=== PATIENT | male | born 1945 | race Caucasian/White ===

== ENCOUNTER → 2017-12-16 | Outpatient (CLI) | payer OTHER ==
[~2017-12-16] MED LIST: ASPIR 8181 MG PO; AUGMENTIN 875-1 EACH PO; CIPROFLOXACIN500 M1 PO; CYCLOBENZAPRINE5 MG PO; DEXAMETHASONE 44 M1 PO; DEXAMETHASONE4 MG; ESTRADIOL 1 MG T1 M1; FAMCYCLOVIR 50500 M1 PO; GLIMEPIRIDE1 MG PO; GLUCOPHAGE XR500 MG PO; HUMALOG100 UNIT/1 SUBQ; HYDROCHLOROTH12.5 M1; HYDROCODON-ACE1 EAC7 PO; HYDROCODONE-AP1 EAC6 PO; KEPPRA 500 MG500 M1 PO; LEVOTHYROXIN; LISINOPRIL-HCT1 EAC1; LISINOPRIL20 MG PO; NAPROSYN500 MG PO; NOHOMEMEDICATIONS; SEROQUEL 25 MG25 M1 PO; SYNTHROID25 MC1 PO; TEMODAR140 MG; XANAX 0.25 MG0.25 MG PO; ZOCOR20 MG
[2017-12-16 07:57] LABS: CREATININE 1.1 mg/dL (0.6-1.3); POTASSIUM 3.6 mmol/L (3.5-5.1)
== END ==
LOC: M.LAB 10-06 10:00 → M.CT 10-06 11:30 → M.LAB 08:00 → M.CT 09:00
PROVIDERS: Radiology Radiation Oncology
DX: M47.812 Spondylosis without myelopathy or radiculopathy, cervical region (principal); C7A.1 Malignant poorly differentiated neuroendocrine tumors; C76.0 Malignant neoplasm of head, face and neck; M47.815 Spondylosis without myelopathy or radiculopathy, thoracolumbar region; M48.02 Spinal stenosis, cervical region; I25.10 Atherosclerotic heart disease of native coronary artery without angina pectoris; I10 Essential (primary) hypertension; Z82.49 Family history of ischemic heart disease and other diseases of the circulatory system

== ENCOUNTER → 2017-12-22 | Outpatient (CLI) | payer OTHER | LOC: M.CT 07:35 | DX: D3A.8 Other benign neuroendocrine tumors (principal); N28.89 Other specified disorders of kidney and ureter; J98.4 Other disorders of lung; N28.1 Cyst of kidney, acquired; Z90.49 Acquired absence of other specified parts of digestive tract ==

== ENCOUNTER → 2017-12-25 | Outpatient (CLI) | payer OTHER ==
--- NOTE | 2018-01-03 12:07 | ONC ---
[facility] [address] [place] [address] RADIATION ONCOLOGY NOTE Name: NIKKIE GOINS Room: [facility]#: [id number] Admission: 12/25/17 Attend Phys: Pedro Nuñez MD Discharge: Date of : 47 Report #: [id number] THIS REPORT FOR: //name// CC: Oscar Blanco MD DATE OF SERVICE: 12/25/2017 RADIATION ONCOLOGY PROCEDURE NOTE [facility] phone is [phone]. REFERRING PHYSICIANS: 1. Oscar Velasquez M.D. 2. Honorio Hensley M.D. 3. Ronald Gonsales M.D. 4. Christiano Reyes M.D. 5. Tariq Blanco M.D. PRIMARY SITE AND HISTOPATHOLOGY: The patient was treated for a glioblastoma multiforme. He received radiation treatments with temozolomide chemotherapy after resection of the glioblastoma multiforme. Radiation treatments were completed on 04/23/2010. 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 The surgery was performed on 09/25/2009. PROCEDURE: Nasopharyngolaryngoscopy. FINDINGS: On nasopharyngolaryngoscopy via the left nostril, after administration of a small amount of 2% viscous lidocaine orally and 2% viscous lidocaine to the left nostril via a cotton swab, there were no visible lesions in the nasopharynx. There were no visible lesions in the posterior oropharynx. The true vocal cords were normally mobile bilaterally, without any visible lesions. There were no visible lesions in the base of tongue area. There was no evidence of head and neck cancer. Thank you for allowing me to participate in the care of this patient. <ELECTRONICALLY SIGNED> By: Pedro Nuñez MD 01/03/18 1207 1255 0043Dhali Nuñez MD /nt
--- NOTE | 2018-01-03 12:19 | ONC ---
[address] [address] RADIATION ONCOLOGY NOTE Name: NIKKIE GOINS Room: [facility]#: [id number] Admission: 12/25/17 Attend Phys: Pedro Nuñez MD Discharge: Date of : 47 Report #: [id number] THIS REPORT FOR: //name// CC: Dr. Oscar Blanco MD DATE OF SERVICE: 12/25/2017 REFERRING PHYSICIANS: Oscar Velasquez MD; Honorio Hensley MD; Ronald Gonsales MD; Christiano Reyes MD and Tariq Blanco MD. [facility] phone is [phone]. PRIMARY SITE AND HISTOPATHOLOGY: The patient was treated for a glioblastoma multiforme and received radiation treatments with temozolomide chemotherapy after resection of the glioblastoma multiforme. Radiation treatments were completed on 04/15/2010. He was also treated for a stage DENISA base of tongue cancer and received chemoradiotherapy. Radiation treatments were completed on 03/26/2009 for the patient's lung cancer. 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 INTERVAL NOTE: The patient feels like he is eating well. He feels fine. He has a good energy level. MEDICATIONS: Metformin, lisinopril, aspirin and 25 mcg of levothyroxine per day. SOCIAL HISTORY: The patient is . Cigarettes: he quit smoking in 1981, he smoked for about 18 years prior to that time. REVIEW OF SYSTEMS: GASTROINTESTINAL: He is eating a regular diet. RESPIRATORY: His breathing was baseline, and he was not short of breath. NEUROLOGIC: He can ambulate without assistance. PHYSICAL EXAMINATION: VITAL SIGNS: The patient weighed 168.2 pounds on 12/25/2017, 176 pounds on 10/22/2016. On 12/25/2017, blood pressure was 177/91, pulse 74, respirations 18. LYMPH NODES: He had no palpable cervical or supraclavicular lymphadenopathy. HEAD, EYES, EARS, NOSE AND THROAT: Mouth [place] [address] RADIATION ONCOLOGY NOTE Name: NIKKIE GOINS Room: [facility]#: [id number] Admission: 12/25/17 Attend Phys: Pedro Nuñez MD Discharge: Date of : 47 Report #: [id number] suspicious palpable lesions. On nasopharyngolaryngoscopy via the left nostril after applying a small amount of viscous lidocaine orally and also 2% viscous lidocaine to left nostril, using a cotton swab, there were no visible lesions in the nasopharynx. There were no visible lesions in the base of tongue. The true vocal cords were normally mobile bilaterally. HEART: Had a regular rate and rhythm without murmur. LUNGS: were clear to auscultation. ABDOMEN: Not tender. Spleen was not palpable. Liver was at the costal margin. EXTREMITIES: Had 5/5 strength in his extremities. LABORATORY DATA: From 12/16/2017, sodium 141, potassium 3.6, BUN 15, creatinine 1.1. TSH was 2.025 on his present dose of 25 mcg of levothyroxine. RADIOLOGIC DATA: He had an abdominal CT on 12/22/2017, which showed no evidence of adrenal mass or retroperitoneal lymphadenopathy. The report was amended and the final amended report revealed an unremarkable abdominal CT. He also had a neck CT on 12/16/2017, which did not reveal any obvious disease. He had a chest CT on 12/16/2017, which showed no pathologic adenopathy or acute infiltrate. ASSESSMENT AND PLAN: 1. History of glioblastoma multiforme. There is no evidence of glioblastoma multiforme at this time. The patient is scheduled to see his neurosurgeon, Dr. Hensley, on 02/10/2018. He has a head MRI scheduled at that time. The patient had a requisition written for a basic metabolic panel in April 2018. He was asked to schedule a follow up appointment to see me afterwards. 2. History of head and neck cancer- There is no evidence of head and neck cancer at this time. The patient was given a requisition for a basic metabolic panel in April 2018. He was asked to schedule a follow up appointment to see me afterwards. 3. History of neuroendocrine tumor- There is no evidence of neuroendocrine tumor at this time. He was given a requisition for a basic metabolic panel in April 2018. He was asked to schedule a follow up appointment to see me afterwards. 4. Hypothyroidism- The patient was given a refill for 25 mcg of levothyroxine. TSH was ordered in April 2018. He was asked to schedule a followup appointment to see me afterwards. 5. Dental care- The patient indicated that he uses fluoride for his teeth and [place] [address] RADIATION ONCOLOGY NOTE Name: NIKKIE GOINS Room: [facility]#: [id number] Admission: 12/25/17 Attend Phys: Pedro Nuñez MD Discharge: Date of : 47 Report #: [id number] 6. Initially stated right renal finding- the radiology report was amended and the right kidney ended up having no suspicious findings. Thank you for allowing me to participate in the care of this patient. <ELECTRONICALLY SIGNED> By: Pedro Nuñez MD 01/03/18 1219 1311 0545Pedro Nuñez MD /sanjana
== END ==
LOC: M.RTH 10-09 09:30
DX: Z08 Encounter for follow-up examination after completed treatment for malignant neoplasm (principal); E03.9 Hypothyroidism, unspecified; Z86.012 Personal history of benign carcinoid tumor; Z85.89 Personal history of malignant neoplasm of other organs and systems; Z85.841 Personal history of malignant neoplasm of brain

== ENCOUNTER 2018-01-04 16:30 | Emergency (ER) | payer OTHER ==
[~2018-01-04] VITALS: Ht 167.6 cm; Wt 74.8 kg
[~2018-01-04 16:30] MED LIST changes: -AUGMENTIN 875-1 EACH PO; -DEXAMETHASONE 44 M1 PO; -GLIMEPIRIDE1 MG PO; -HUMALOG100 UNIT/1 SUBQ; -KEPPRA 500 MG500 M1 PO; -SEROQUEL 25 MG25 M1 PO; -SYNTHROID25 MC1 PO; -XANAX 0.25 MG0.25 MG PO
[2018-01-04 18:38] VITALS: BP 163/88
== END 2018-01-04 18:51 | disposition home or self-care (01) ==
LOC: M.ERS 16:30
DX: S09.90XA Unspecified injury of head, initial encounter (principal); I10 Essential (primary) hypertension; Z86.718 Personal history of other venous thrombosis and embolism; W22.8XXA Striking against or struck by other objects, initial encounter; Y93.89 Activity, other specified; Y92.89 Other specified places as the place of occurrence of the external cause; Y99.8 Other external cause status

== ENCOUNTER 2018-01-07 11:24 | Emergency (ER) | payer OTHER ==
[~2018-01-07] VITALS: Ht 167.6 cm; Wt 74.8 kg
[2018-01-07 11:43] LABS: ABSOLUTE BASOPHILS 0.1 thou/uL (0.0-0.2); ABSOLUTE EOSINOPHILS 0.1 thou/uL (0.0-0.7); ABSOLUTE LYMPHOCYTES 2.4 thou/uL (0.8-5.3); ABSOLUTE MONOCYTES 0.7 thou/uL (0.0-1.2); ABSOLUTE NEUTROPHILS 5.7 thou/uL (1.6-8.1); BASOPHILS 1.2 %; EOSINOPHILS 0.8 %; HEMATOCRIT 41.3 % (42.0-52.0); HEMOGLOBIN 13.8 gm/dL (14.0-18.0); LYMPHOCYTES 26.8 %; MCH 32.5 pg (26.0-34.0); MCHC 33.5 g/dL (28.0-37.0); MCV 97.2 fL (80.0-100.0); MONOCYTES 7.3 %; MPV 8.4 fl. (7.2-11.1); NUCLEATED RBCS 0 /100WBC; PLATELET COUNT* 249 thou/uL (150-400); POLYS 63.9 %; RBC 4.25 mil/uL (4.50-6.00); RDW-CV 12.9 % (10.5-14.5)
[2018-01-07 11:55] LABS: PROTIME 10.7 Seconds (9.20-11.50)
[2018-01-07 11:57] LABS: ANION GAP 8 mmol/L (7-16); BUN 19 mg/dL (7-18); CALCIUM 8.8 mg/dL (8.5-10.1); CHLORIDE 103 mmol/L (98-107); CO2 28 mmol/L (21-32); CREATININE 1.1 mg/dL (0.6-1.3); GLUCOSE 111 mg/dL (70-99); POTASSIUM 3.3 mmol/L (3.5-5.1); SODIUM 139 mmol/L (136-145)
[2018-01-07 12:15] LABS: ALBUMIN 3.9 g/dL (3.4-5.0); ALKALINE PHOSPHATASE 61 U/L (46-116); CK-MB MASS 1.5 ng/mL (<0.5-3.6); NT-PRO BRAIN NAT PEPTIDE 143 pg/mL (<300); SGOT 19 U/L (15-37); SGPT 20 U/L (30-65); TOTAL BILIRUBIN 0.6 mg/dL (<0.1-1.0); TOTAL PROTEIN 7.2 g/dL (6.4-8.2); TROPONIN-I LEVEL <0.06 ng/mL (<0.06)
[2018-01-07 12:34] LABS: URINE BILIRUBIN NEGATIVE (Negative); URINE BLOOD NEGATIVE (Negative); URINE CLARITY CLEAR; URINE COLOR YELLOW; URINE GLUCOSE-RANDOM NEGATIVE (Negative); URINE KETONES NEGATIVE (Negative); URINE LEUKOCYTES-REFLEX NEGATIVE (Negative); URINE NITRITE-REFLEX NEGATIVE (Negative); URINE PROTEIN NEGATIVE (Negative); URINE UROBILINOGEN 0.2 E.U./dl (0.2-1.0)
[2018-01-07 15:25] VITALS: BP 188/87
--- NOTE | 2018-01-07 15:47 | EKG ---
[place] [address] ELECTROCARDIOGRAM REPORT Name: NIKKIE GOINS Room: [facility]#: [id number] Admission: 01/07/18 Attend Phys: Discharge: 01/07/18 Date of : 47 Report #: [id number] THIS REPORT FOR: //name// [facility] ED Test Date: 2018-01-07 Test Time: 12:06:08 Pat Name: NIKKIE GOINS Department: Room: Gender: M Technical Operator: Davy TURNER : 1945 Requested By: Jorge Morfin Order Number: [id number] MD: Sarmad Ross Measurements Intervals [place] Rate: 72 P: 60 RI: 149 QRS: 4 QRSD: 91 T: 20 QT: 408 QTc: 447 Interpretive Statements Normal sinus rhythm Abnormal R-wave progression, early transition Baseline wander in lead(s) V5 Compared to ECG 06/01/2016 08:29:18 No significant changes Electronically Signed On 01-07-2018 15:47:45 CDT by Sarmad Ross [email or web address] <ELECTRONICALLY SIGNED> By: Sarmad Ross MD, [facility] 01/07/18 1547 1206 1206 Sarmad Ross MD, [facility] /EPI
== END 2018-01-07 15:27 | disposition short-term general hospital (02) ==
LOC: M.ERS 11:24
PROVIDERS: Family Medicine
DX: R41.82 Altered mental status, unspecified (principal); I10 Essential (primary) hypertension; G93.89 Other specified disorders of brain; Z86.718 Personal history of other venous thrombosis and embolism

== ENCOUNTER → 2018-01-13 | Outpatient (CLI) | payer OTHER ==
[~2018-01-13] MED LIST changes: +AUGMENTIN 875-1 EACH PO; +DEXAMETHASONE 44 M1 PO; +GLIMEPIRIDE1 MG PO; +HUMALOG100 UNIT/1 SUBQ; +KEPPRA 500 MG500 M1 PO; +SEROQUEL 25 MG25 M1 PO; +SYNTHROID25 MC1 PO; +XANAX 0.25 MG0.25 MG PO
--- NOTE | 2018-01-25 02:26 | CON ---
[address] [address] CONSULTATION Name: WILLIE GOINS Room: [facility]#: [id number] Admission: 01/13/18 Attend Phys: Pedro Nuñez MD Discharge: Date of : 47 Report #: [id number] THIS REPORT FOR: //name// CC: Oscar Reyes. DATE OF SERVICE: 01/13/2018 REFERRING PHYSICIANS: Include Dr. Willie Hensley, Dr. Ronald Gonsales, Dr. Stahl, Dr. Christiano Reyes and Oscar Velasquez MD [facility] phone is [phone]. PRIMARY SITE AND HISTOPATHOLOGY: The patient now has findings consistent with a new brain lesion. HISTORY OF PRESENT ILLNESS: The patient is a 72-year-old gentleman who had been previously treated for a glioblastoma multiforme where he underwent resection and then radiation treatments along with temozolomide chemotherapy. He finished radiation treatments in 2009 and that was at the [facility]. His resection was at [facility]. That lesion that was present in 2009 was noted on a head MRI on 01/28/2010, which revealed a right parietal lesion that measured 3 cm.x 3.3 cm. x 3.4 cm. After resection and radiation therapy and temozolomide, he appeared to be disease free until the scan that he had performed on 01/07/2018. He also has a history of stage DENISA base of tongue cancer and he received radiation therapy and chemotherapy for that. The radiation therapy was completed on 03/26/2009. 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 Most recently, he had indicated that he fell and that he was taken to the Emergency Room and ultimately went on to have a head MRI at [facility] on 01/07/2018, which revealed a 5.3 cm. x 4.1 cm. x 3.3 cm mass involving the right frontal operculum and right hay radiata. The patient was started on 4 mg. dexamethasone every 12 hours. He is going to be reducing to 4 mg every day. He denied having any headaches. He denied having any nausea and he felt like his gait was stable and that his strength was reasonably well. He is scheduled to see his medical oncologist, Dr. Gonsales, later today. He is also scheduled to see the medical oncologist, Dr. Stahl, and his neurosurgeon, Dr. Hensley, in 01/2018. He presents to discuss further management of this brain lesion. PAST MEDICAL HISTORY AND PAST SURGICAL HISTORY: [place] [address] CONSULTATION Name: WILLIE GOINS Room: [facility]#: [id number] Admission: 01/13/18 Attend Phys: Pedro Nuñez MD Discharge: Date of : 47 Report #: [id number] present illness of his previous malignancies. He also has a history of hypertension. He has a history of colon polyps and previous colonoscopy. MEDICATIONS: He is taking Keppra, dexamethasone will be reduced from 4 mg twice a day to 4 mg once a day. He also is taking metformin, lisinopril and aspirin. ALLERGIES: No known drug allergies. FAMILY HISTORY: Mother and father had hypertension. SOCIAL HISTORY: The patient is . 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 Ethanol: he does not drink alcohol. Cigarettes: he quit smoking in 1981, he smoked for about 18 years prior to that time. REVIEW OF SYSTEMS: GENERAL: He had no fevers or chills. SKIN: He bruises a little bit easily while on the dexamethasone. LYMPH NODES: He had no enlarged or painful glands in the neck. ENDOCRINE: He denied having hot or cold intolerance. HEMATOLOGY/IMMUNOLOGY: Denied having any anemia or recent bleeding. MUSCULOSKELETAL: He has arthritis in the knees. HEAD AND NECK: He did have a little bit of head trauma after the fall, but MRI did not really show any hematoma, just this brain tumor. RESPIRATORY: He denied having any shortness of breath. CARDIOVASCULAR: He denied any palpitations. ABDOMEN: He denied having any nausea or vomiting. NEUROLOGIC: He says he has focal weakness mostly in the left upper extremity and some coordination issues. They have improved while on the steroids. PHYSICAL EXAMINATION: GENERAL: The patient was alert,oriented and in no acute distress. EYES: Pupils were equal, round and reactive to light and accomodation. HEAD, EARS, NOSE, THROAT: Mouth had no visible suspicious lesion. HEART: had a regular rate and rhythm. LUNGS: were clear to auscultation. ABDOMEN: soft and not tender. EXTRENITES: no clubbing, cyanosis, or edema NUROLOGIC: 4 out of 4 strength in his extremites LABORATORY DATA: From 01/08/2018, hemoglobin 13.7, platelets 242,000. Sodium 137, potassium 3.9, BUN 17, creatinine 1.02. Head MRI from 01/07/2018 showed a heterogeneous mass-like enhancement involving the right frontal operculum and right hay radiata, measured 5.3 x 4.1 x 3.3 cm and appears to be new compared to his MRI of the head on 07/01/2017. The patient [place] [address] CONSULTATION Name: WILLIE GOINS Room: [facility]#: [id number] Admission: 01/13/18 Attend Phys: Pedro Nuñez MD Discharge: Date of : 47 Report #: [id number] 12/22/2017, which was essentially unremarkable, just some surgical changes with resection of the distal body and tail of pancreas. He had a neck CT also on 12/16/2017, which was essentially unremarkable and a chest CT from 12/16/2017 was essentially unremarkable. ASSESSMENT AND PLAN: 1. Brain lesion- Most likely this is a malignant glioma since it appears to be a solitary lesion. Since it has been about 8 years since his treatment for his glioblastoma multiforme, a biopsy would be probably helpful. I will try to email his neurosurgeon, Dr. Hensley, to see if a biopsy and/or resection is feasible. He has had previous radiation therapy, so re-radiation may be somewhat limited, but if it is recurrent glioblastoma multiforme then treatment with temozolomide may be considered or Optune therapy, and he is seeing the medical oncologist. I will go ahead and try to also order a PET scan and have the patient follow up with me afterwards. 2. Hypothyroidism- The patient has been taking 25 mcg of levothyroxine and his TSH has been within normal limits with him taking that amount of levothyroxine, and his TSH was 2.025 on 12/16/2017. 3. History of neuroendocrine tumor. A PET/CT will be ordered and he will be asked to follow up with me afterwards. 4. History of head and neck cancer. PET/CT will be ordered and he will follow up with me afterwards. 5. Dental care. The patient uses the fluoride provided by his dentist for dental care. Thank you for allowing me to participate in the care of this patient. <ELECTRONICALLY SIGNED> By: Pedro Nuñez MD 01/25/18 0226 1244 1319Daesmer Nuñez MD /nt
== END ==
LOC: M.RTH 05:10
DX: I10 Essential (primary) hypertension (principal); G93.9 Disorder of brain, unspecified; C80.1 Malignant (primary) neoplasm, unspecified; Z87.891 Personal history of nicotine dependence

== ENCOUNTER → 2018-01-27 | Outpatient (CLI) | payer OTHER ==
[~2018-01-27] MED LIST changes: -AUGMENTIN 875-1 EACH PO; +GLUCOPHAGE XR500 MG; -GLUCOPHAGE XR500 MG PO; -SEROQUEL 25 MG25 M1 PO
--- NOTE | 2018-02-07 11:20 | ONC ---
[address] [address] RADIATION ONCOLOGY NOTE Name: WILLIE GOINS Room: [facility]#: [id number] Admission: 01/27/18 Attend Phys: Pedro Nuñez MD Discharge: Date of : 47 Report #: [id number] THIS REPORT FOR: //name// CC: Oscar Reyes MD DATE OF SERVICE: 01/27/2018 REFERRING PHYSICIANS: Oscar Velasquez MD; Dr. Willie Hensley; Ronald Gonsales MD; Sarmad Stahl MD; Christiano Reyes MD [facility] phone is [phone]. PRIMARY SITE AND HISTOPATHOLOGY: The patient now has findings consistent with a recurrent brain tumor. In the past, he was treated for a glioblastoma multiforme. He received radiation treatments with temozolomide chemotherapy after resection of the glioblastoma multiforme. Radiation treatments were completed on 04/15/2010. He was also treated for a stage DENISA base of tongue cancer and received chemotherapy and radiation therapy. Radiation treatments were completed on 03/26/2009. He also had resection of a oez-np-wwrjxcthxj differentiated neuroendocrine cancer of the abdomen. The surgery was performed on 09/25/2009. INTERVAL NOTE: The patient had a PET scan to help see if there are any other areas of concern in the body and there were no signs of any other signs of extracranial disease. The patient otherwise is doing well, taking 4 mg dexamethasone per day. He does have some issues with insomnia, but he denied having any headaches or seizures or nausea. He actually has a pretty good appetite. MEDICATIONS: Include Keppra. 4 mg. dexamethasone once a day. He is also taking metformin (and he says his sugars run somewhere between 100 and 200 when he checks them),lisinopril and aspirin. SOCIAL HISTORY: The patient is . 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 Ethanol: He does not drink alcohol containing beverages. Cigarettes: He quit smoking in 1981. He smoked for about 18 years prior to that time. REVIEW OF SYSTEMS: NEUROLOGIC: The patient is able to ambulate without assistance, though he does sometimes use a walker, [place] [address] RADIATION ONCOLOGY NOTE Name: WILLIE GOINS Room: [facility]#: [id number] Admission: 01/27/18 Attend Phys: Pedro Nuñez MD Discharge: Date of : 47 Report #: [id number] RESPIRATORY: He was not short of breath. PHYSICAL EXAMINATION: VITAL SIGNS: The patient weighed 167.2 pounds on 01/27/2018. He was 165.4 pounds on 01/13/2018. On 01/27/2018, blood pressure was 146/82, pulse 75, oxygen saturation 98%, respirations 18. LYMPH NODES: No cervical or supraclavicular lymphadenopathy. HEART: Had a regular rate and rhythm without murmur. LUNGS: were clear to auscultation. NEUROLOGY: Had 4/5 strength in his extremities. LABORATORY DATA: From 01/08/2018, hemoglobin 13.7, platelets 84385, white blood cell count 6.9. Sodium 137, potassium 3.9, BUN 17, creatinine 1.02. RADIOLOGIC DATA: Head MRI from 01/07/2018 revealed mass-like enhancement involving the right frontal operculum and right hay radiata. PET scan from 01/20/2018: There was no evidence of extracranial primary malignancy. ASSESSMENT/PLAN: 1. Most likely recurrent brain tumor- The patient is scheduled to see the medical oncologist, Dr. Stahl, on 02/01/2018 and his neurosurgeon, Dr. Hensley, on 02/10/2018. So we will wait to see Dr. Hensley's evaluation of his scan to see if he will biopsy/resect what appears to be recurrent tumor and lab work was ordered in about a month and the patient was asked to schedule a follow up appointment to see me afterwards. He was given a refill for his dexamethasone and Keppra. 2. Hypothyroidism- The patient has been taking 25 mcg of levothyroxine and his TSH has been within normal limits with him taking that amount of levothyroxine. 3. History of neuroendocrine tumor- There is no evidence of neuroendocrine tumor at this time. 4. History of head and neck cancer- There is no evidence of head and neck cancer at this time. 5. Dental care- The patient uses fluoride provided by his dentist for dental care. Thank you for allowing me to participate in the care of this patient. <ELECTRONICALLY SIGNED> By: Pedro Nuñez MD 02/07/18 1120 1149 0046Pedro Nuñez MD /nt
== END ==
LOC: M.RTH 03:53
DX: E03.9 Hypothyroidism, unspecified (principal); Z85.89 Personal history of malignant neoplasm of other organs and systems; Z85.858 Personal history of malignant neoplasm of other endocrine glands

== ENCOUNTER 2018-02-13 08:34 | Emergency (ER) | payer OTHER ==
[~2018-02-13] VITALS: Ht 167.6 cm; Wt 80.4 kg
[~2018-02-13 08:34] MED LIST changes: -DEXAMETHASONE 44 M1 PO; -GLIMEPIRIDE1 MG PO; -HUMALOG100 UNIT/1 SUBQ; -KEPPRA 500 MG500 M1 PO; -SYNTHROID25 MC1 PO; -XANAX 0.25 MG0.25 MG PO
[2018-02-13 08:59] LABS: ABSOLUTE BASOPHILS 0.1 thou/uL (0.0-0.2); ABSOLUTE EOSINOPHILS 0.1 thou/uL (0.0-0.7); ABSOLUTE LYMPHOCYTES 1.3 thou/uL (0.8-5.3); ABSOLUTE MONOCYTES 0.5 thou/uL (0.0-1.2); ABSOLUTE NEUTROPHILS 9.7 thou/uL (1.6-8.1); EOSINOPHILS 0.5 %; HEMATOCRIT 38.2 % (42.0-52.0); HEMOGLOBIN 12.7 gm/dL (14.0-18.0); LYMPHOCYTES 11.3 %; MCH 32.7 pg (26.0-34.0); MCHC 33.3 g/dL (28.0-37.0); MCV 98.4 fL (80.0-100.0); MONOCYTES 4.2 %; MPV 8.6 fl. (7.2-11.1); NUCLEATED RBCS 0 /100WBC; PLATELET COUNT* 176 thou/uL (150-400); RBC 3.88 mil/uL (4.50-6.00); RDW-CV 13.3 % (10.5-14.5); WBC 11.7 thou/uL (4.0-11.0)
[2018-02-13] MEDS ORDERED: DEXAMETHASONE 44 M1 PO (09:00)
[2018-02-13] MEDS ORDERED: KEPPRA 500 MG500 M1 PO (09:01)
[2018-02-13 09:08] LABS: ANION GAP 2 mmol/L (7-16); BUN 28 mg/dL (7-18); CALCIUM 9.2 mg/dL (8.5-10.1); CHLORIDE 102 mmol/L (98-107); CO2 30 mmol/L (21-32); CREATININE 1.2 mg/dL (0.6-1.3); GLUCOSE 198 mg/dL (70-99); POTASSIUM 4.2 mmol/L (3.5-5.1); SODIUM 134 mmol/L (136-145)
[2018-02-13 09:19] LABS: ALBUMIN 2.9 g/dL (3.4-5.0); ALKALINE PHOSPHATASE 44 U/L (46-116); NT-PRO BRAIN NAT PEPTIDE 186 pg/mL (<300); SGOT 15 U/L (15-37); SGPT 27 U/L (30-65); TOTAL BILIRUBIN 0.4 mg/dL (<0.1-1.0); TOTAL PROTEIN 5.7 g/dL (6.4-8.2); TROPONIN-I LEVEL <0.06 ng/mL (<0.06)
[2018-02-13 09:35] LABS: BE 0.7 mmol/L (-2 to +3); HCO3 24.7 mmol/L (22.0-26.0); PCO2 37.5 mmHg (35.0-45.0); PO2 86.9 mmHg (75.0-100.0); pH 7.436 (7.340-7.450)
[2018-02-13 10:33] LABS: APTT 22.4 Seconds (25.0-31.3); PROTIME 10.7 Seconds (9.20-11.50)
[2018-02-13 11:48] LABS: URINE BILIRUBIN NEGATIVE (Negative); URINE BLOOD NEGATIVE (Negative); URINE CLARITY CLEAR; URINE COLOR YELLOW; URINE GLUCOSE-RANDOM TRACE (Negative); URINE KETONES NEGATIVE (Negative); URINE LEUKOCYTES-REFLEX NEGATIVE (Negative); URINE NITRITE-REFLEX NEGATIVE (Negative); URINE PROTEIN NEGATIVE (Negative); URINE UROBILINOGEN 0.2 E.U./dl (0.2-1.0)
[2018-02-13 13:44] VITALS: BP 144/84
--- NOTE | 2018-02-14 10:59 | EKG ---
[place] [address] ELECTROCARDIOGRAM REPORT Name: NIKKIE GOINS Room: [facility]#: [id number] Admission: 02/13/18 Attend Phys: Discharge: 02/13/18 Date of : 47 Report #: [id number] THIS REPORT FOR: //name// [facility] ED Test Date: 2018-02-13 Test Time: 09:03:56 Pat Name: NIKKIE IRAHETADILEEPOswaldo Department: Room: Gender: Painting Instructor: Davy TURNER : 1945 Requested By: Cheryl Shipley Order Number: [id number] MD: Ladarius Weber Measurements Intervals [place] Rate: 71 P: 13 CO: 139 QRS: 10 QRSD: 86 T: 18 QT: 391 QTc: 425 Interpretive Statements Sinus rhythm Compared to ECG 01/07/2018 12:06:08 No significant changes Electronically Signed On 02-14-2018 10:59:19 CDT by Ladarius Weber [email or web address] <ELECTRONICALLY SIGNED> By: Ladarius Weber MD, [facility] 02/14/18 1059 D: 10/902 2 Ladarius Weber MD, FACC /EPI
== END 2018-02-13 13:44 | disposition home or self-care (01) ==
LOC: M.ERS 08:34
PROVIDERS: Personal Emergency Response Attendant
DX: D49.6 Neoplasm of unspecified behavior of brain (principal); I10 Essential (primary) hypertension

== ENCOUNTER 2018-03-03 12:49 | Inpatient (IN) | payer OTHER ==
[~2018-03-03] VITALS: Ht 172.7 cm; Wt 90.7 kg
[~2018-03-03 12:49] MED LIST changes: +DEXAMETHASONE 44 M1 PO; -GLUCOPHAGE XR500 MG; +GLUCOPHAGE XR500 MG PO; +KEPPRA 500 MG500 M1 PO
[2018-03-03 12:52] VITALS: BP 151/78
[2018-03-03 13:08] LABS: HEMATOCRIT 39.8 % (42.0-52.0); HEMOGLOBIN 13.3 gm/dL (14.0-18.0); MCH 32.8 pg (26.0-34.0); MCHC 33.5 g/dL (28.0-37.0); MPV 9.4 fl. (7.2-11.1); NUCLEATED RBCS 0 /100WBC; PLATELET COUNT* 224 thou/uL (150-400); RBC 4.06 mil/uL (4.50-6.00); RDW-CV 13.7 % (10.5-14.5); WBC 10.6 thou/uL (4.0-11.0)
[2018-03-03 13:18] LABS: ANION GAP 5 mmol/L (7-16); BUN 31 mg/dL (7-18); CHLORIDE 101 mmol/L (98-107); CO2 31 mmol/L (21-32); CREATININE 1.2 mg/dL (0.6-1.3); GLUCOSE 234 mg/dL (70-99); POTASSIUM 4.2 mmol/L (3.5-5.1); SODIUM 137 mmol/L (136-145)
[2018-03-03 13:19] LABS: APTT 21.2 Seconds (25.0-31.3); PROTIME 10.3 Seconds (9.20-11.50)
[2018-03-03 13:29] LABS: ALBUMIN 2.9 g/dL (3.4-5.0); ALKALINE PHOSPHATASE 52 U/L (46-116); NT-PRO BRAIN NAT PEPTIDE 167 pg/mL (<300); SGOT 13 U/L (15-37); SGPT 26 U/L (30-65); TOTAL BILIRUBIN 0.3 mg/dL (<0.1-1.0); TOTAL PROTEIN 5.9 g/dL (6.4-8.2); TROPONIN-I LEVEL <0.06 ng/mL (<0.06)
[2018-03-03 13:45] LABS: ABSOLUTE LYMPHOCYTES 0.4 thou/uL (0.8-5.3); ABSOLUTE MONOCYTES 0.3 thou/uL (0.0-1.2); ABSOLUTE NEUTROPHILS 9.9 thou/uL (1.6-8.1)
[2018-03-03 13:46] LABS: PLATELET ESTIMATE ADEQUATE; TOXIC GRANULATION 2+
[2018-03-03 13:47] LABS: MACROCYTES 1+; TARGET CELLS 1+
[2018-03-03 15:11] LABS: URINE BILIRUBIN NEGATIVE (Negative); URINE BLOOD NEGATIVE (Negative); URINE CLARITY CLEAR; URINE COLOR YELLOW; URINE GLUCOSE-RANDOM 1+ (Negative); URINE KETONES NEGATIVE (Negative); URINE LEUKOCYTES-REFLEX NEGATIVE (Negative); URINE NITRITE-REFLEX NEGATIVE (Negative); URINE PROTEIN NEGATIVE (Negative); URINE UROBILINOGEN 0.2 E.U./dl (0.2-1.0)
[2018-03-03 16:20] VITALS: BP 149/90
--- NOTE | 2018-03-03 16:41 | EKG ---
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 Seating: : 1945 Requested By: Kosta Patel Order Number: [id number] MD: Ladarius Weber Measurements Intervals [place] Rate: 67 P: 18 MN: 138 QRS: 8 QRSD: 83 T: 45 QT: 407 QTc: 430 Interpretive Statements Sinus rhythm Abnormal R-wave progression, early transition Compared to ECG 02/13/2018 09:03:56 No significant changes Electronically Signed On 03-03-2018 16:41:50 WELT CUTTER by Ladarius Weber [email or web address] <ELECTRONICALLY SIGNED> By: Ladarius Weber MD, [facility] 03/03/18 1641 1254 1254 Ladarius Weber MD, [facility] /EPI
[2018-03-03 16:58] VITALS: BP 169/85
--- NOTE | 2018-03-03 17:24 | NUR ---
ADMITTED TO ROOM 311, NO DISTRESS NOTED, MOD AMT DEFICIT TO LUE/LLE, UP W/ SBA OF ONE W/ USE OF WALKER, GAIT UNSTEADY. CONT OF BOWEL/BLADDER, FAMILY AT BEDSIDE. SEE ASSESSMENT FOR DETAILS, NO WOUNDS NOTED, MED LIST RECONCILED, SR ON MONITOR, BP ELEVATED, CALL LIGHT IN REACH, CONT POC.
[2018-03-03] MEDS ORDERED: SYNTHROID25 MC1 PO (17:33)
[2018-03-03] MEDS ORDERED: XANAX 0.25 MG0.25 MG PO (17:35)
[2018-03-03] MEDS ORDERED: GLIMEPIRIDE1 MG PO (17:36)
[2018-03-03 20:00] VITALS: BP 173/89
[2018-03-04 00:10] VITALS: BP 173/88
[2018-03-04 04:00] VITALS: BP 139/81
--- NOTE | 2018-03-04 06:07 | NUR ---
PATIENT SLEPT PART OF THE NIGHT. IV REMAINS SALINE LOCKED. PATIENT HAD NO COMPLAINTS OF PAIN. PATIENT IS UP WITH 1 AND WALKER TO THE BATHROOM. WILL CONTINUE TO MONITOR.
[2018-03-04 08:00] VITALS: BP 176/84
[2018-03-04 12:00] VITALS: BP 156/77
--- NOTE | 2018-03-04 13:15 | NUR ---
ATTEMPTED TO SPEAK TO THE PATIENT TO DISCUSS HOME SITUATION, DISCHARGE PLANNING, AND TO INFORM OF THE ROLE OF CM. PATIENT OUT OF THE ROOM AT THIS TIME HAVING IMAGING DONE. PATIENT'S SON IN THE ROOM AND ANSWERING ASSESSMENT QUESTIONS. PATIENT'S SON INFORMS THAT THE PATIENT RESIDES AT HOME WITH SPOUSE AND SHE DOES ALL DRIVING, COOKING, CLEANING, AND ASSST WITH CARES NEEDED. PATIENT'S SON IS ALSO A GOOD SOURCE OF SUPPORT AND IS SUPPORTIVE AND INVOLVED IN THE PATIENT'S POC. PATIENT USES A WALKER FOR MOBILITY, BUT ALSO OWNS A CANE. PATIENT HAD BEEN ON-SERVICE WITH [facility] PRIOR TO THIS ADMISSION. PATIENT HAS NO HX OF SNF. CM INFORMED OF CONSULT FOR ACUTE REHAB HER IN THE HOSPITAL. SPOKE TO SECURITY GUARD DISPATCHER TO DISCUSS AND SHE WILL REVIEW AND RETURN CALL TO DISCUSS. CM WILL REMAIN AVIALABLE TO ASSIST AND FOLLOW NEEDED.
[2018-03-04 16:00] VITALS: BP 142/65
--- NOTE | 2018-03-04 17:27 | NUR ---
RECEIVED CONSULT FOR POSSIBLE REHAB ADMISSION. CONSULT HAS BEEN ACKNOWLDEGED BY ANESTHESIOLOGIST AND DR. LAMBERT. PATIENT WITH HX OF BRAIN GLIOBLASTOMA. ADMITTED RECENTLY WITH RECURRENT BRAIN GLIOMA AND RIGHT ICH. WAS UNDERGOING ANTIBODY THERAPY TX WITHOUT RADIATION WITH LAST TX DAY BEFORE THIS ADMISSION. ADMITTED THIS TIME WITH INCREASING WEAKNESS, MULTIPLE FALLS AND INABILITY TO AMBULATE. NEUROLOGY WORK UP WITH DX OF POSSIBLE SEIZURE AND SMALL STROKE. PATIENT EVALUATED AND SEEN BY PT/OT/ST HAS DEFINITE REHAB NEEDS. SPOKE WITH LOU SIMON INFORMED PATIENT WOULD BE GOOD REHAB CANDIDATE AND QUALIFIES FOR ACUTE REHAB DEPENDING ON CONTINUED CANCER TX, WHICH WOULD HAVE TO BE PUT ON HOLD UNTIL AFTER REHAB STAY. WILL FOLLOW ALONG WITH PATIENT TO SEE HOW HE PROGRESSES AND WHAT CANCER TX WILL BE. THANK YOU FOR THIS REFERRAL.
--- NOTE | 2018-03-04 18:18 | NUR ---
COMPREHENSIVE NEURO ASSESSMENT COMPLETE, NO DISTRESS, ELIDIA MEDS/ CARES WELL, CARE PLAN REVIEWED, DENIES QUESTIONS, CALL LIGHT IN REACH, CONT POC.
[2018-03-04 20:30] VITALS: BP 127/82
[2018-03-05 00:05] VITALS: BP 133/64
[2018-03-05 04:00] VITALS: BP 174/92
--- NOTE | 2018-03-05 05:25 | NUR ---
PATIENT SLEPT MOST OF THE NIGHT. PATIENT IS UP WITH ASSIST WITH WALKER AND GAITBELT TO BATHROOM. IV REMAINS SALINE LOCKED. PATIENT IS POSSIBLY GOING TO REHAB ON DISCHARGE. WILL CONTINUE TO MONITOR.
[2018-03-05 08:10] VITALS: BP 182/87
--- NOTE | 2018-03-05 15:30 | NUR ---
INEZ spoke with Dr Gonzales about pt dc plans and Dr Gonzales completed orders for pt to be able to dc to inpt rehab today. SW spoke with pt and pt about dc plan and they are in agreement with pt to dc to inpt rehab and receive therapies until pt next infusion/cancer tx on 03/16. Pt/pt goal for pt to be able to dc 03/15 prior to an 03/15 appt at 3:30. Pt explained that they had another appt on 03/12 but she is willing to reschedule that appt. INEZ discussed referral/orders with rehabilitation tech, Conchis, she presented information to insurance and acceptance to rehab pending insurance authorization, if/when received, then pt will be able to admit to inpt rehab. Pt also mentioned that she will cancel the wc that was going to be delivered to the hospital when they thought they might go home today. Pt also mentioned that pt will need a rolling walker with a platform attachment and INEZ explained that can be arranged from dc from inpt rehab.
[2018-03-05 16:00] VITALS: BP 150/84
--- NOTE | 2018-03-05 17:23 | NUR ---
PATIENT HAS BEEN ALERT AND ORIENTED TODAY VERY PLEASANT. UP WITH THERAPY, WALKER AND GAIT BELT. TOLERATED WELL. VITAL SIGNS STABLE ON ROOM AIR, FAMILY AT BEDSIDE MOST OF THE DAY. WAITING ON INSURANCE AUTHORIZATION. CALL LIGHT IS IN REACH, WILL CONITNUE TO MONITOR.
[2018-03-05 20:00] VITALS: BP 171/93
[2018-03-06] VITALS (8 sets, daily range): BP systolic 125–170; BP diastolic 65–93
--- NOTE | 2018-03-06 18:52 | NUR ---
ELIDIA THERAPY WELL, NO DISTRESS, COMPLIANT W/ MEDS AND CARES, DISCUSSED PLAN OF CARE, NO QUESTIONS AT THIS TIME, CONT POC.
[2018-03-07 04:07] LABS: HEMATOCRIT 37.6 % (42.0-52.0); HEMOGLOBIN 12.5 gm/dL (14.0-18.0); MCH 32.6 pg (26.0-34.0); MCHC 33.1 g/dL (28.0-37.0); MCV 98.5 fL (80.0-100.0); MPV 10.1 fl. (7.2-11.1); RBC 3.82 mil/uL (4.50-6.00); RDW-CV 13.6 % (10.5-14.5); WBC 13.7 thou/uL (4.0-11.0)
[2018-03-07 04:33] LABS: ALBUMIN 2.7 g/dL (3.4-5.0); CALCIUM 8.8 mg/dL (8.5-10.1); MAGNESIUM 1.9 mg/dL (1.8-2.4); POTASSIUM 4.3 mmol/L (3.5-5.1); TOTAL BILIRUBIN 0.4 mg/dL (<0.1-1.0); TOTAL PROTEIN 5.2 g/dL (6.4-8.2)
--- NOTE | 2018-03-07 04:50 | NUR ---
PATIENT REMAINS STABLE THIS SHIFT. NO INJURIES SUSTAINED FROM FALL AND NO ORDERS RECEIVED. PATIENT'S BLOOD SUGAR CORRECTED APPROPRIATELY. PATIENT DENIES PAIN AND DISCOMFORT. PATIENT NOW RESTING IN BED WITH ALARM IN PLACE. HOURLY ROUNDING OBSERVED. CALL LIGHT WITHIN REACH
[2018-03-07 08:00] VITALS: BP 144/80
[2018-03-07 15:46] VITALS: BP 146/84
[2018-03-07 19:45] VITALS: BP 151/79
--- NOTE | 2018-03-08 06:33 | NUR ---
PT SLEPT MOST OF SHIFT. ASSESSMENT DOCUMENTED. MEDS GIVEN PER E-JUN. NO REPORTS OF PAIN THIS SHIFT. PATIENT REFUSED INSULIN AND XANEX THIS SHIFT. PT STATED THAT HE IS AFRAID HE WILL BECOME DEPENDANT ON INSULIN, PT EDUCATED. PT ALSO STATED THAT HE WANTED TO TRY TO GET OFF OF ALL OF HIS MEDICATIONS. WILL CONTINUE WITH PLAN OF CARE.
[2018-03-08 08:00] VITALS: BP 138/74
--- NOTE | 2018-03-08 09:31 | NUR ---
Insurance has initially denied pt acceptance to inpt rehab. INEZ has asked Dr Gonzales if he would be willing to do peer to peer with pt insurance and INEZ is awaiting response. INEZ to continue to follow to assist with safe dc planning.
--- NOTE | 2018-03-08 14:41 | NUR ---
CONTINUEING TO FOLLOW PATIENT ALONG WITH DR. LAMBERT. INSURANCE DENIED ACUTE REHAB, PEER TO PEER WAS INITIATED. RECEIVED CALL FROM INSURANCE TODAY AND PEER TO PEER COMPLETED AND DENIAL WAS OVERTURNED. PATIENT NOW APPROVED TO COME TO ACUTE REHAB. NOTIFIED MALCOLM SIMON OF APPROVAL AND THAT PATIENT CAN ADMIT TONIGHT.
--- NOTE | 2018-03-08 15:33 | NUR ---
INEZ discussed needed peer to peer with Dr Gonzales who was willing to discuss with Dr from pt insurance. Dr Gonzales was able to overturn the decision and pt insurance provided approval for pt to admit to inpt rehab. Conchis Roldan, student liaison officer provided final approval to INEZ; pt to dc to inpt rehab today.
[2018-03-08 16:45] VITALS: BP 149/83
[2018-03-08] MEDS ORDERED: HUMALOG100 UNIT/1 SUBQ (18:23)
[2018-03-08 18:24] VITALS: BP 149/83
--- NOTE | 2018-03-20 15:44 | EEG ---
[address] [address] EEG STUDY REPORT Name: NIKKIE GOINS Room: [address] IN [facility]#: [id number] Admission: 03/03/18 Attend Phys: Salena Izaguirre Discharge: 03/08/18 Date of : 47 Report #: [id number] THIS REPORT FOR: //name// CC: Oscar Gonzales DATE OF SERVICE: 03/04/2018 This patient is having episode of weakness on the left side. EEG is being done to evaluate the patient for any epileptiform activity arising from the right cerebral hemisphere. The background activity on this patient's EEG on the right side is about 9 Hz and 30 microvolt. It is a markedly asymmetrical activity. It is slow on the right side. It also demonstrates some sharper activity. Most prominent sharper activity is in the right parietal area. Part of it may be breach rhythm because the patient had surgery there by history, but it does fluctuate raising the possibility of seizures from there. Photic stimulation is unremarkable. IMPRESSION: This is a markedly abnormal electroencephalogram because it is very asymmetrical. It is markedly slow on the right side as compared to the left side. It does show some sharper activity on the right cerebral hemisphere. Part of it may be breach rhythm, but it does fluctuate raising some possibility of seizure for which clinical correlation is recommended. <ELECTRONICALLY SIGNED> By: Sean Hernandez MD 03/20/18 [id number] carlos Hernandez MD /nt
--- NOTE | 2018-03-20 15:44 | CON ---
[address] [address] CONSULTATION Name: NIKKIE GOINS Room: [address] IN M.R.#: [id number] Admission: 03/03/18 Attend Phys: Salena Izaguirre Discharge: 03/08/18 Date of : 47 Report #: [id number] THIS REPORT FOR: //name// CC: Oscar Gonzales DATE OF SERVICE: 03/04/2018 HISTORY OF PRESENT ILLNESS: This is a 72-year-old male patient who was seen by me for a very complicated history. There are multiple records in the computer, which I reviewed. He has a detailed note from radiation oncologist summarizing his history of tumor over a long period of time. He was admitted with generalized weakness, but to me he tells me that his weakness is mostly on the left side. It looks like the weakness fluctuates and intermittently it becomes worst that leads to fall. There may be some component of neglect. In between when he has these symptoms, he also has a tendency to ____. The history is also that when this actually happened, it looks like he had an episode where he has shakiness and probably seizure. He has been on Keppra since then. From all indications, it would appear that this patient's tumor has come back and he is going to follow up with Dr. Hensley to evaluate that tumor further and discuss his options. His MRI also indicated the possibility of a small stroke that time. I reviewed the record from Emergency Room physician when he was here the last time and looks like they had called Dr. Hensley and discussed the patient with him on 02/13/2018. REVIEW OF SYSTEMS: Positive for multiple tumors in this patient. A 14-point review of system was carried out and it is pretty complicated as described above. The relevant portion is summarized above. PAST MEDICAL HISTORY: Positive for glioblastoma, which appeared to have responded to the treatment at least initially. FAMILY HISTORY: Negative for any early age stroke. SOCIAL HISTORY: Does not drink alcohol on a regular basis. PHYSICAL EXAMINATION: Indicate that he is alert, responsive. He is oriented. He can tell me what month it is and what hospital he is in. Cranial nerve examination 2-12, the best I can tell, looks mostly unremarkable. He did have a facial droop at one time. He may have slight facial droop now. His strength may be trace, lower on the left side as compared to the right side. He has no cerebellar sign on either side, does not appear he has papilledema. He is moderately well-built individual who does not have [place] [address] CONSULTATION Name: NIKKIE GOINS Room: [address] IN M.R.#: [id number] Admission: 03/03/18 Attend Phys: Salena Izaguirre Discharge: 03/08/18 Date of : 47 Report #: [id number] eyes, ears and face. His blood pressure is 176/84, respirations 12, pulse is 76, temperature is 98.2. His GFR is 60. His blood sugar is 234. His cardiac and respiratory examination is unremarkable. He does not appear to have much respiratory difficulty. I reviewed the patient's prior records as well as imaging study. IMPRESSION: 1. Recurrence of his tumor, which need to be confirmed by biopsy or resection. For that, he has an appointment with his neurosurgeon, Dr. Hensley, at [facility]. 2. Small hemorrhage in the right frontal lobe, which appeared to have resolved. 3. Possibility of a diffusion abnormality, which is small on the last MRI and that may represent a new stroke. 4. Possibility of some of these spell being focal seizures, need to be considered, especially he had a grand mal seizure in the past. 5. History of a grand mal seizure without any reoccurrence. RECOMMENDATIONS: I discussed with the patient and the family, the limitation of our hospital. I told them that there is no neurosurgeon or neuro-oncologist comes here and he needs to go to there. I will also talk to the admitting doctor. At the moment, I will go ahead and get another MRI done to compare to see if he is having some small strokes because initial MRI has shown slight diffusion-weighted abnormality. I will also go ahead and do an MRA at the same time. He has got contrast so many times. Even if his BUN and creatinine is normal, I will do the MRI without contrast only because basically we are looking for is to see if he had another stroke since last time and whether that diffusion-weighted images were even stroke. I am going to get an EEG to see if we can pharmacy picking technician any focal seizure activity, which will indicate that we have to increase the dose of Keppra. I may do that anyway because a lot of time EEG is not sensitive enough to pharmacy picking technician the seizure. I will suggest considering a rehab consult on this patient. The question need to be addressed whether this place will be appropriate for him for the rehabilitation or he needs to go to some other place like [facility]. Family is concerned about keeping his appointment for his infusion, it is on ; they wanted to know if the patient can go to the infusion when he is admitted to the hospital or not. I could not answer their question. Medically, there should not be any contraindication, but the rules need to be followed. For that, I will consult bilingual case manager for that. All of it was discussed with the family in detail and I will discuss this patient with Dr. Gonzales. Dr. Enciso will follow up this patient with you [place] [address] CONSULTATION Name: NIKKIE GOINS Room: [address] IN [facility].#: [id number] Admission: 03/03/18 Attend Phys: Salena Izaguirre Discharge: 03/08/18 Date of : 47 Report #: [id number] Thank you very much for this referral. <ELECTRONICALLY SIGNED> By: Sean Hernandez MD 03/20/18 1544 0938 [id number] Hernandez MD /nt
== END 2018-03-08 19:30 | DRG 54 ==
LOC: M.ERS 12:49 → M.3W 15:09 → M.TBA-ER 15:09 → M.3W 15:09
PROVIDERS: Emergency Medicine Emergency Medical Services; Family Medicine; ADMIT Internal Medicine
DX: C71.1 Malignant neoplasm of frontal lobe (principal); I63.9 Cerebral infarction, unspecified; E44.0 Moderate protein-calorie malnutrition; R56.9 Unspecified convulsions; E11.9 Type 2 diabetes mellitus without complications; I10 Essential (primary) hypertension; Z85.810 Personal history of malignant neoplasm of tongue; Z86.718 Personal history of other venous thrombosis and embolism; Z87.891 Personal history of nicotine dependence; Z68.30 Body mass index [BMI] 30.0-30.9, adult; Z79.899 Other long term (current) drug therapy

== ENCOUNTER 2018-03-08 15:28 | Inpatient (IN) | payer OTHER ==
[~2018-03-08] VITALS: Ht 172.7 cm; Wt 77.1 kg
--- NOTE | ~2018-03-08 | H ---
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 He presented on 03/03/2018 with complaint of worsening weakness, inability to ambulate. 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 He was recently seen at . The tumor had returned. He was given antibiotic therapy and radiation on 02/13/2018. He presented to the ER at [facility] with complaint of facial droop, slurred speech. MRI did show at that time the right frontal lobe glioblastoma and right frontal lobe ICH and possible infarcts were present. No significant changes since the preadmission screening. Previous level of function was minimum assistance to no assistance with activities of daily living. Current level of function is minimum assistance to maximum assistance of 1-2 depending on therapy, activity and time of day. He is utilizing a front-wheeled walker at 75 feet. He has moderate to severe impairment of comprehension, expression, social interaction, problem solving, memory. Estimated length of stay is 12-16 days with discharge disposition to the home setting where he does have supportive family and appropriate housing. ALLERGIES: He has no known drug allergies. SOCIAL HISTORY: Former smoker greater than 5 years ago, daily drinks 1-2 per day. No illicit drug use. REVIEW OF SYSTEMS: A 14-point review of systems is done today, is negative except as mentioned in the HPI, specifically no fever, chest pain, shortness of breath, abdominal pain or distention. PHYSICAL EXAMINATION: GENERAL: Alert, oriented, in no apparent distress. VITAL SIGNS: Reviewed and are stable. HEENT: Head atraumatic, normocephalic. Pupils equal, round, reactive. ABDOMEN: Soft, nontender, nondistended. NEUROLOGIC: Cranial nerves 2-12 are grossly intact with no focal neuro deficits, 5/5 strength in bilateral upper and lower extremities. SKIN: Warm and dry. No [place] [address] HISTORY AND PHYSICAL Name: NIKKIE GOINS Room: [address] IN [facility]#: [id number] Admission: 03/08/18 Attend Phys: Tisha Ybarra DO Discharge: Date of : 47 Report #: [id number] ASSESSMENT: 1. Right frontal lobe glioblastoma. 2. Multiple medical comorbidities. PLAN: 1. Admission to inpatient rehabilitation to facilitate discharge home. 2. PT, OT, speech, language, case management, nursing and HIMS to make evaluations and recommendations. 3. Plan of care is pending. 4. We will team weekly and make changes to the plan of care as needed. By: 1832 [id number] Ybarra DO /nt
--- NOTE | ~2018-03-08 | PLAN ---
[address] [address] REHAB UNIT PLAN OF CARE Name: NIKKIE GOINS Room: [address] IN [facility].#: [id number] Admission: 03/08/18 Attend Phys: Tisha Ybarra DO Discharge: Date of : 47 Report #: [id number] THIS REPORT FOR: //name// CC: Oscar Ybarra DATE OF SERVICE: 03/11/2018 This is a 72-year-old male admitted to inpatient rehabilitation to facilitate safe discharge home status post acute hospitalization at [place], beginning on 03/03/2018 with worsening weakness, inability to ambulate, history of a right frontal lobe glioblastoma and a right frontal lobe intracranial hemorrhage with possible infarcts resected 8 years ago, but has apparently come back. He was discharged to home, but returned to the ER on 03/03/2018 with hemorrhage that had extended and he had decline with left-sided weakness, debility and impaired gait. Previous level of function was modified independent to independent with activities of daily living. Current level of function is minimum to maximum assistance 1-2 depending on therapy, activity and time of day. He has moderate to severe impairment of comprehension, expression, social interaction, problem solving and memory. MEDICAL PROGNOSIS: Good. REHABILITATION PROGNOSIS: Good. Estimated length of stay is 7-10 days with discharge disposition to the home setting where he has an accessible house and a supportive family. Physical therapy will see the patient 60-90 minutes per day, 5 days per week working on upper and lower body strength, balance, coordination. Occupational therapy will see the patient 60-90 minutes per day, 5 days per week working on upper and lower body strength, balance, coordination, navigation, bathing, dressing, and toileting. Speech and language pathology will see the patient 60-90 minutes per day, 5 days per week, working on comprehension, expression, social interaction and problem solving. This is an overall plan of care, may change from time to time. We will team weekly and make changes to plan of care as needed. By: 1424 [id number] Ybarra DO /sanjaan
[~2018-03-08 15:28] MED LIST changes: +GLIMEPIRIDE1 MG PO; +SYNTHROID25 MC1 PO; +XANAX 0.25 MG0.25 MG PO
[2018-03-08] MEDS ORDERED: HUMALOG100 UNIT/1 SUBQ (18:23)
[2018-03-08 20:00] VITALS: BP 159/90
--- NOTE | 2018-03-09 00:20 | NUR ---
PT ARRIVED ONTO UNIT AT 1940 VIA W/C. ALERT AND ORIENTED X 3. PLEASANT. HAS EXPRESSIVE APHASIA. DENIED ANY PAIN, DIZZINESS, BUSH, SOA. HX OF MULTIPLE TUMORS AND FALLS AT HOME. CAN BE IMPULSIVE. HAS LEFT UPPER ARM WEAKNESS AND NEGLECT. WILL TEND TO LEAN MORE TO LEFT SIDE WHEN SITTING. REDNESS TO LEFT ELBOW FROM PROBABLE RUBBING AGAINST ARMREST PLATFORM ON WALKER/WC. OPTIFOAM PLACED. ALSO LEFT FOREARM SCABBED AREA THAT IS ROC. PT HAS CONCERN WITH APPTS NEXT WEEK FOR INFUSIONS. INFORMED HIM THAT WOULD PASS THIS INFO TO LEVELING MACHINE OPERATOR/LIASION. ASSESSMENT COMPLETED AND PT ORIENTED TO UNIT. QUESTIONS ANSWERED. PT VERBALIZED UNDERSTANDING OF FALL PRECAUTIONS. BED ALARM ON. CALL LIGHT IN REACH. WILL CONTINUE TO MONITOR.
[2018-03-09 04:51] LABS: HEMATOCRIT 40.1 % (42.0-52.0); HEMOGLOBIN 13.7 gm/dL (14.0-18.0); MCH 33.3 pg (26.0-34.0); MCHC 34.1 g/dL (28.0-37.0); MCV 97.8 fL (80.0-100.0); MPV 10.4 fl. (7.2-11.1); RBC 4.11 mil/uL (4.50-6.00); RDW-CV 13.5 % (10.5-14.5); WBC 14.3 thou/uL (4.0-11.0)
[2018-03-09 05:02] LABS: CALCIUM 9.2 mg/dL (8.5-10.1); POTASSIUM 3.7 mmol/L (3.5-5.1)
--- NOTE | 2018-03-09 05:09 | NUR ---
PT IS A MOD ASSIST WITH GAIT BELT AND WALKER. GAIT UNSTEADY AT TIMES. WEAKNESS TO LEFT SIDE. UP TO BATHROOM SEVERAL TIMES DURING NIGHT. DOES OWN CARES. TAKES PILLS WHOLE WITHOUT ISSUES. SLEPT LITTLE OFF AND ON. REFUSED XANAX AT HS. NO ATTEMPTS TO GET UP WITHOUT CALLING. USED CALL LIGHT APPRORPIATELY. BED ALARM ON.
[2018-03-09 08:30] VITALS: BP 150/87
--- NOTE | 2018-03-09 14:05 | NUR ---
ASSUMED CARE AT 0730 PATIENT ALERT/ORIENTED, NO COMPLAINTS OF PAIN THIS SHIFT, UP WITH ASSIST OF ONE AND WALKER/GAIT BELT, BLOOD SUGAR MONITORED WITH S/S INSULIN FOR COVERAGE. BED/CHAIR ALARMS IN PLACE, CALL LIGHT IN REACH, HOURLY ROUNDING COMPLETED, PARTICIPATED IN ALL THERAPIES TODAY, TO DINING ROOM FOR MEALS
--- NOTE | 2018-03-09 14:11 | NUR ---
Nutrition: Pt admitted to Rehab with frontal lobe glioblastoma. Heart healthy diet with CHO count. Wt: 172#. Eating 100% of meals. Albumin 2.7, prealb 28.7. Pt asleep at time of visit, 13:35. RN stated no nutrition concerns at this time. Will follow weekly. Low risk.
--- NOTE | 2018-03-09 16:54 | NUR ---
SW met with pt to complete initial assessment, introduce self, and inpt rehab SW role. Pt alert, oriented. Pt lives at home with . Pt has rollator, grab bars, shower chair. Pt plans to be able to dc on 03/15 prior to next infusion. Pt does not anticipate needing HH or other follow up services and is most focused on gaining some strength and then being able to complete his cancer treatments. SW to continue to follow to assist with safe dc planning.
--- NOTE | 2018-03-09 17:59 | NUR ---
Assumed care of pt at 1500. Pt up with PT at time of nursing change. Pt has had no c/o pain this afternoon. Up to dinner in the dining area this eveing , appetite good. resting in bed now, call light in reach. hourlt rouding maintained.
[2018-03-09 20:00] VITALS: BP 133/94
--- NOTE | 2018-03-10 05:03 | NUR ---
ASSUMED PT CARE AT 1930. PT ALERT AND ORIENTED X4, POLITE AND COOPERATIVE WITH CARES. DENIES PAIN. UP WITH ASSIST OF ONE, GAIT BELT AND WALKER TO BATHROOM TO VOID SEVERAL TIMES OVERNIGHT. SKIN TEAR TO LEFT ELBOW WITH MEPILEX INTACT COVERED BY TUBIGRIP. PT AWAKE AT 0300, SITTING UP IN CHAIR WATCHING TELEVISION REQUESTING COFFEE. CHAIR ALARM ON FOR SAFETY. HOURLY ROUNDING IN PROGRESS, WILL CONTINUE TO MONITOR.
[2018-03-10 08:06] VITALS: BP 163/86
--- NOTE | 2018-03-10 15:46 | NUR ---
INEZ and med student, Amarjit, met with pt to review team conference summary and plan for pt to remain on rehab unit to continue therapies and then most likely dc on Thursday for appts and infusion on Thursday. Team discussed Dr Ybarra plans to meet with pt/pt at 3 pm tomorrow; possible palliative or hospice care would be recommended. INEZ to continue to follow to assist with safe dc planning.
--- NOTE | 2018-03-10 17:45 | NUR ---
ASSUMED CARE AT 0730 PATIENT ALERT/ORIENTED, NO COMPLAINTS OF PAIN THIS SHIFT, UP WITH ASSIST OF ONE AND WALKER/GAIT BELT, PARTICIPATED IN ALL THERAPIES TODAY, TO DINING ROOM FOR MEALS, BED/CHAIR ALARMS IN PLACE, CALL LIGHT IN REACH.
[2018-03-10 20:00] VITALS: BP 167/86
--- NOTE | 2018-03-11 05:07 | NUR ---
ASSUMED PT CARE AT 1930. PT ALERT AND ORIENTED X4, POLITE AND COOPERATIVE WITH CARES. PT UP TO BATHROOM MULTIPLE TIMES OVERNIGHT TO VOID AND TO ATTEMPT BOWEL MOVEMENT. PT DID NOT SLEEP WELL, WATCHING TELEVISION MOST OF THE NIGHT. PT ADAMANT THAT HE "HAS TO GET OUT OF HERE", THAT HE IS FRUSTRATED WITH HIS SITUATION. PT USED CALL LIGHT APPROPRIATELY, TRANSFERRING WITH SLIPPERS, GAIT BELT AND WALKER AND SBA TO BATHROOM. CALL LIGHT AND FREQUENTLY USED ITEMS WITHIN REACH. HOURLY ROUNDING IN PROGRESS, WILL CONTINUE TO MONITOR.
--- NOTE | 2018-03-11 07:04 | NUR ---
SLEEPING SINCE 2300 & SLEPT GOOD ALL NIGHT.TOOK ALL TARYN CRACKERS X2 PACKAGES W/ ORANGE JUICE 120 ML HS SNACKS.TILLMAN CATHETER REMOVED @ 0640.AKILAH CARE DONE.URINAL GIVEN & PATIENT TRIED IF CAN REACH TO BE ABLE TO PLACE URINAL BY SELF BUT UNABLE TO REACH.INSTRUCTED TO CALL NURSE FOR ASSIST TO PLACE URINAL.
[2018-03-11 07:38] VITALS: BP 171/85
--- NOTE | 2018-03-11 17:48 | NUR ---
ASSUMED CARE AT 0730 PATIENT ALERT/ORIENTED, NO COMPLAINTS OF PAIN, UP WITH STANDBY ASSIST WITH HIS HOME WALKER, HAVE TO REIFORCE KEEPING UP IN THE WALKER, HE TENDS TO PUSH IT AWAY FROM HIM AT ARMS LENGTH. HOURLY ROUNDING COMPLETED, TO DINING ROOM FOR MEALS, BED/CHAIR ALARMS IN PLACE, CALL LIGHT IN REACH, PARTICIPATED IN ALL THERAPIES TODAY.
[2018-03-11 20:00] VITALS: BP 153/84
--- NOTE | 2018-03-12 05:08 | NUR ---
ASSUMED CARES AT 1920. ALERT AND ORIENTED. PLEASANT. SLIGHTEST SLURRING OF SPEECH. LEFT ARM WEAKER AND EASILY NEGLECTS. WILL LEAN HEAVILY TO LEFT SIDE WHEN SITTING UP. C/O TOOTHACHE. TRAMADOL GIVEN. SAYS THAT NOT SLEEPING VERY WELL. REQUESTED SEROQUEL AND THIS WAS GIVEN. MIN ASSIST WITH GAIT BELT AND WALKER. GAIT WAS UNSTEADY DURING THE NIGHT AFTER TAKING SEROQUEL. PT NOTED THAT HE WAS LIGHTHEADED WHILE WALKING. UP TO BATHROOM. NEEDS SOME ASSIST WITH ONE SIDED DRESSING. SLEPT MAJORITY OF THE NIGHT. ONLY UP X 2 TO BR. CALL LIGHT IN REACH AND BED ALARM ON.
[2018-03-12 08:09] VITALS: BP 160/83
--- NOTE | 2018-03-12 13:51 | NUR ---
ASSUMED CARE AT 0730. ALERT ORIENTED PLEASANT COOPERATIVE. HX OF FRONTAL LOBE GLIOBASTOMA. TRANSFERS WITH SBA G BELT WALKER FROM RECLINER AND AMBULATES TO BR TO VOID ABLE TO DO HYGEINE AND CLOTHING ADJUSTMENTS, USES CALL LIGHT APPROPRIATELY FOR ASSIST. DID HAVE C/O TOOTH PAIN THIS A.M. RECEIVED TYLENOL WITH SOME RELIEF STATED. PARTICIPATING IN THERAPIES THROUGHOUT THE DAY. APPETITE GOOD FEEDS SELF TAKES MEDS WITHOUT DIFFICULTY. HAS SOME WEAKNESS L UPPER ARM.
--- NOTE | 2018-03-12 15:58 | NUR ---
SW met with pt and pt as well as pt son in room to discuss and prepare for pt dc on Thursday. Pt and pt preference for pt to resume HH services at dc and SW discovered pt is active with [facility] and they are okay with continuing with [facility]. SW to provide [facility] with referral/resumption orders on Thursday. Pt plans to have a wc delivered to pt on Thursday. SW to continue to follow to assist with safe dc planning.
[2018-03-12 19:54] VITALS: BP 144/79
--- NOTE | 2018-03-12 22:37 | NUR ---
ASSUMED CARE AT 1930. PATIENT RESTED IN BED UNTIL AROUND 2144. UP WITH SBA, GAIT BELT, WALKER. VOIDS OFTEN PER TOILET. HAS NOT HAD BM BUT WANTS TO WAIT UNTIL MORNING FOR MOM. TURNS SELF EASILY, TAKES PILLS EASILY WITH WATER. C/O BED NOT FEELING COMFORTABLE, WENT TO RECLINER UNTIL 2144, SLEEPING ON HOURLY ROUNDS. LT ELBOW DRESSING C/D/I, POSITIONING IT ON PILLOW PER SELF. REFUSED HS SNACK. BLOOD SUGAR 223, GIVEN SSI COVERAGE. TOOK SEROQUEL AND ULTRAM AT HS. SLEEPING IN RECLINER. ABLE TO POSITON SELF. HOURLY ROUNDS CONTINUE. BED ALARM AND CHAIR ALARM IN USE. CALL LITE IN REACH.
--- NOTE | 2018-03-13 05:30 | NUR ---
SLEPT MOST OF THE NIGHT IN RECLINER. WOKE UP TO VOID THEN RETURNED TO SLEEP. VOIDS PER TOILET. OF THIS WRITING, HAS VOIDED 6 TIMES THIS SHIFT. NO C/O PAIN. UP TO TOILET WITH GAIT BELT, WALKER. CHAIR ALARM ON. HAS USED CALL LITE APPROPRIATELY. HOURLY ROUNDS CONTINUE. CALL LITE IN REACH.
[2018-03-13 08:09] VITALS: BP 187/90
--- NOTE | 2018-03-13 18:20 | NUR ---
ASSUMED CARE AT 0730 PATIENT ALERT/ORIENTED, UP WITH STANDBY ASSIST WITH WALKER AND GAIT BELT, TYLENOL GIVEN FOR TOOTHACHE THIS SHIFT WITH GOOD RESULTS, PARTICIPATED IN ALL THERAPIES TODAY, TO DINING ROOM FOR MEALS, BED/CHAIR ALARMS IN PLACE, CALL LIGHT IN REACH, HOURLY ROUNDING COMPLETED.
[2018-03-13 20:00] VITALS: BP 159/71
--- NOTE | 2018-03-14 05:06 | NUR ---
ASSUMED PT CARE AT 1930. PT ALERT AND ORIENTED, POLITE AND COOPERATIVE WITH CARES. PT DENIES PAIN. UP TO VOID NUMEROUS TIMES OVERNIGHT WITH GAIT BELT AND WALKER. PT SLEPT WELL UNTIL 0300 WHEN HE WAS UP TO VOID AND HAS BEEN SITTING IN RECLINER SINCE WATCHING TELEVISION. CHAIR ALARM ON FOR SAFETY. PT USES CALL LIGHT APPROPRIATELY. PT IS EAGER FOR DISCHARGE ON THURSDAY. NO STOOL THIS SHIFT. HOURLY ROUNDING IN PROGRESS, WILL CONTINUE TO MONITOR.
[2018-03-14 08:09] VITALS: BP 168/86
--- NOTE | 2018-03-14 18:16 | NUR ---
ASSUMED CARE AT 0730 PATIENT ALERT/ORIENTED, PAIN REPORTED FROM OF TOOTHACHE, PATIENT HAS BEEN USING ORAJEL, HIS RIGHT JAW IS SWOLLEN TODAY. DR WESTFALL STARTED HIM ON AN ANTIBIOTIC WITH LABS IN THE AM. PARTICIPATED IN THERAPIES TODAY, TO DINING ROOM FOR MEALS, BED/CHAIR ALARMS IN PLACE, CALL LIGHT IN REACH, HOURLY ROUNDING COMPLETED. TO BE DISCHARGED TO HOME TOMORROW.
[2018-03-14 20:00] VITALS: BP 144/76
[2018-03-15 04:43] LABS: CALCIUM 9.5 mg/dL (8.5-10.1); MAGNESIUM 1.9 mg/dL (1.8-2.4); POTASSIUM 3.9 mmol/L (3.5-5.1)
--- NOTE | 2018-03-15 05:04 | NUR ---
ASSUMED PT CARE AT 1930. PT ALERT AND ORIENTED, POLITE AND COOPERATIVE WITH CARES. NO C/O TOOTH PAIN OR ANY OTHER PAIN. UP TO VOID SEVERAL TIMES OVERNIGHT WITH GAIT BELT AND WALKER. NO STOOL THIS SHIFT. PT SLEPT WELL IN RECLINER BETWEEN VOIDS. CHAIR ALARM ON FOR SAFETY. PT USES CALL LIGHT APPROPRIATELY. PT IS TO BE DISCHARGED TO HOME TODAY. CALL LIGHT AND FREQUENTLY USED ITEMS WITHIN REACH. HOURLY ROUNDING IN PROGRESS, WILL CONTINUE TO MONITOR.
[2018-03-15 08:00] VITALS: BP 158/93
[2018-03-15 09:57] VITALS: BP 158/93
[2018-03-15] MEDS ORDERED: AUGMENTIN 875-1 EACH PO (13:13)
[2018-03-15] MEDS ORDERED: SEROQUEL 25 MG25 M1 PO (13:20)
[2018-03-15 13:27] VITALS: BP 158/93
[2018-03-15 13:35] VITALS: BP 158/93
--- NOTE | 2018-03-15 14:22 | NUR ---
ASSUMED CARE AT 0730. ALERT ORIENTED PLEASANT COOPERATIVE. HX OF FRONTAL LOBE GLIOBLASTOMA. USES CALL LIGHT APPROPRIATELY FOR ASSISTANCE. NEEDS CUES FOR SAFETY AT TIMES. TRANSFERS WITH SBA G BELT WALKER AND AMBULATES TO BR TO VOID IN TOILET. DENIES PAIN OR REQUESTS. HERE TO TRANSPORT PT. HOME AFTER LUNCH. FEEDS SELF TAKES MEDS WITHOUT DIFFICULTY. PT. AND VERBALIZED UNDERSTANDING OF D/C INSTRUCTIONS. ALLOWED TIME FOR QUESTIONS. SCRIPTS GIVEN FOR 3 MEDS. DISCHARGED AT 1405 PER W/C WITH BELONGINGS WITH TO HOME WITH HOME HEALTH.
--- NOTE | 2018-03-15 14:49 | NUR ---
Pt to dc home with today. SW met with pt and pt and discussed order for front wheeled rolling walker; pt and pt refused delivery of rolling walker and stated that they just received wc through insurance and they are aware that they cannot receive both through insurance and pt said he really does not like the standard RW anyway; pt says it will not roll on his carpet. SW notified Beulah with [facility] to cancel order and noted in pt chart that he is refusing FWW. Pt has wc and 4 wheeled walker with a seat. Pt preference for [facility]; SW faxed referral and final orders and med list to [facility]. Pt here to provide pt ride home.
--- NOTE | 2018-03-30 13:59 | D ---
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 DISCHARGE DISPOSITION: To home with home health PT, OT and nursing. The patient is on antibiotics for dental issues and is undergoing hyperbaric oxygen treatments for the next minimum 10 days prior to tooth extraction. He will follow with his primary care physician within one week. HBO as previously arranged. Dental once his HBO has been completed. Notifications for physician were given. DIET: Remains the same. Front-wheeled walker for household ambulation, wheelchair, which was purchased privately for community ambulation. Fall precautions. Medications were reviewed and reconciled by myself and are available in the MAR. He was started on Augmentin 875/125 one p.o. b.i.d. for 8 days, #16, no refills. He was started on a new dose of lisinopril at 40 mg p.o. daily one-month prescription was given. New medication was started, Seroquel 25 mg p.o. at bedtime. He can also do one-half to one tablet. This was discussed both with the patient and his spouse in great detail. Family training was completed including a car transfer. The patient moved towards his goals in a timely fashion. DISCHARGE PHYSICAL EXAMINATION: GENERAL: Alert, oriented, in no apparent distress. VITAL SIGNS: [place] [address] DISCHARGE SUMMARY Name: NIKKIE GOINS Room: [address]#: [id number] Admission: 03/08/18 Attend Phys: Tisha Ybarra DO Discharge: 03/15/18 Date of : 47 Report #: [id number] HEENT: Head atraumatic, normocephalic. Pupils equal, round, reactive. ABDOMEN: Soft, nontender, nondistended. NEUROLOGIC: Cranial nerves 2-12 are grossly intact with no focal neuro deficits, 5/5 strength in bilateral upper and lower extremities. SKIN: Warm and dry. No rashes or lesions noted. <ELECTRONICALLY SIGNED> By: Tisha Ybarra DO 03/30/18 1359 1405 1424Kelconsuelo Ybarra DO /nt
== END 2018-03-15 14:05 | disposition home health service (06) | DRG 55 ==
LOC: M.REH 15:28
PROVIDERS: Internal Medicine; ADMIT Physical Medicine & Rehabilitation
DX: C71.1 Malignant neoplasm of frontal lobe (principal); I10 Essential (primary) hypertension; E11.9 Type 2 diabetes mellitus without complications; R29.6 Repeated falls; R56.9 Unspecified convulsions; D89.9 Disorder involving the immune mechanism, unspecified; G47.00 Insomnia, unspecified; K04.7 Periapical abscess without sinus; R53.1 Weakness; Z86.718 Personal history of other venous thrombosis and embolism; Z92.3 Personal history of irradiation; Z87.891 Personal history of nicotine dependence; Z79.82 Long term (current) use of aspirin; Z79.84 Long term (current) use of oral hypoglycemic drugs; Z79.899 Other long term (current) drug therapy; Z85.810 Personal history of malignant neoplasm of tongue

== ENCOUNTER → 2018-03-17 | Outpatient (CLI) | payer OTHER ==
[~2018-03-17] MED LIST changes: +AUGMENTIN 875-1 EACH PO; +HUMALOG100 UNIT/1 SUBQ; +SEROQUEL 25 MG25 M1 PO
== END ==
LOC: M.WC 09:12
DX: M27.8 Other specified diseases of jaws (principal); E11.9 Type 2 diabetes mellitus without complications; I10 Essential (primary) hypertension; Z86.73 Personal history of transient ischemic attack (TIA), and cerebral infarction without residual deficits; Z85.841 Personal history of malignant neoplasm of brain; Z85.818 Personal history of malignant neoplasm of other sites of lip, oral cavity, and pharynx; Z87.891 Personal history of nicotine dependence; Z79.82 Long term (current) use of aspirin; W88.1XXA Exposure to radioactive isotopes, initial encounter; Y93.89 Activity, other specified; Y92.89 Other specified places as the place of occurrence of the external cause; Y99.8 Other external cause status

== ENCOUNTER → 2018-03-30 | Outpatient (CLI) | payer OTHER | LOC: M.LAB 10:27 → M.MRI 11:30 | DX: I63.9 Cerebral infarction, unspecified (principal); C71.9 Malignant neoplasm of brain, unspecified ==

== ENCOUNTER 2018-04-26 11:41 | Inpatient (IN) | payer OTHER ==
[~2018-04-26] VITALS: Ht 167.6 cm; Wt 77.6 kg
--- NOTE | ~2018-04-26 | CON ---
[address] [address] CONSULTATION Name: NIKKIE GOINS Room: [address] IN .R.#: [id number] Admission: 04/26/18 Attend Phys: Radha Nazario Discharge: Date of : 47 Report #: [id number] THIS REPORT FOR: //name// CC: Oscar Mahajan DATE OF SERVICE: 04/27/2018 REASON FOR CONSULTATION: GBM, weakness. REQUESTING PHYSICIAN: Regino Mahajan DO. HISTORY OF PRESENT ILLNESS: The patient is a very pleasant 72-year-old man who is receiving Avastin for recurrent glioblastoma. He has a history of fibrous tumor resected in 2009 followed chemoradiation, did very well until January 2002 when he had progression of disease in the frontoparietal lobe. He has been receiving Avastin. He apparently had intracranial hemorrhage in the past, now he is seeing Dr. Stahl, a neuro-oncologist at [facility] receiving Avastin. He is getting progressively weak. Apparently, he was told that the Avastin was "not doing its job." He was seen recently by his oncologist, dose of Decadron was increased from 16 to 24. He developed more weakness, has not been able to walk and was brought to the hospital. This morning, he is doing okay. He is alert and oriented. He does not have complaints of vomiting but has complaints of weakness in extremities. He states he cannot walk without assistance. PAST MEDICAL HISTORY: Significant for hypertension, GBM, diabetes mellitus, hypothyroidism, history of a neuroendocrine carcinoma of the pancreas and head and neck cancer. REVIEW OF SYSTEMS: See above. SOCIAL HISTORY: He lives with , has very supportive family. Does not smoke. PHYSICAL EXAMINATION: GENERAL: Reveals chronically ill-appearing man, not in acute distress. VITAL SIGNS: Blood pressure 168/94, temperature 97.9 and respirations 18. HEENT: Does not reveal thrush. NECK: Supple. HEART: Normal S1 and S2. LUNGS: Clear. EXTREMITIES: 4/5 in lower extremities and 3/5 in upper left extremity and right is 4/5. LABORATORY DATA: White count 23.4, hemoglobin 15.3 and platelets [place] [address] CONSULTATION Name: NIKKIE GOINS Room: [address]#: [id number] Admission: 04/26/18 Attend Phys: Radha Nazario Discharge: Date of : 47 Report #: [id number] 132 and potassium 4.7. RADIOLOGICAL DATA: CT of head shows old surgical changes, decreased prominence of right posterior frontal low density region, no hemorrhage in the process. ASSESSMENT AND PLAN: 1. Glioblastoma multiforme. I advised the patient to discuss the case with primary Oncology, has recommended to discontinue treatment for now since he was told that "it was not working." 2. Weakness, possibly secondary to steroids, have been decreased mg. By: 1124 0301Ronald Gonsales MD /nt
--- NOTE | ~2018-04-26 | CON ---
[address] [address] CONSULTATION Name: NIKKIE GOINS Room: [address] IN .R.#: [id number] Admission: 04/26/18 Attend Phys: Radha Nazario Discharge: Date of : 47 Report #: [id number] THIS REPORT FOR: //name// CC: Oscar Mahajan DATE OF SERVICE: 04/27/2018 REQUESTING PHYSICIAN: Regino Mahajan DO. REASON FOR CONSULTATION: Acute kidney injury. HISTORY OF PRESENT ILLNESS: The patient is a very pleasant 72-year-old gentleman, with medical history significant for brain tumor. Apparently now is recurrent. The patient presents with altered mental status. His creatinine yesterday was 1.4, baseline around 1. Serum sodium was 132. So according to the patient and the patient's , he started not feeling well for several days prior to admission and ready developed some weakness, confusion and he apparently recently was started on a trial ____ and over again as mentioned earlier over last several days, was getting progressively worse. He had problems to ambulating, and could not ____ that with assistance, getting weaker on the left side and he was brought here to the hospital. His CT scan of the head revealed some low density region in the right frontal lobe, which is decreased in prominence as compared to study from 03/03/2018 and that region was measured 2.1 x 2.2 cm. No new process was reported. CT scan was done without IV contrast. PAST MEDICAL HISTORY: Tongue carcinoma, also has history of brain tumor, history of hemorrhagic stroke, shingles, chronic low back pain, also has history of diabetes and hypertension. FAMILY HISTORY: Noncontributory to this problem. SOCIAL HISTORY: Supportive family. No tobacco or alcohol abuse. MEDICATIONS: Again reviewed from my standpoint, he was on lisinopril, hydrochlorothiazide and metformin. REVIEW OF SYSTEMS: Positive for urine, nocturia and weakness on the left side as I mentioned earlier, otherwise all systems reviewed and negative. PHYSICAL EXAMINATION: GENERAL: He is awake, alert, oriented. VITAL SIGNS: His blood pressure 168/94, heart rate 69, afebrile. HEENT: Pupils are round. He has got some scars on his neck, [place] [address] CONSULTATION Name: NIKKIE GOINS Room: [address]#: [id number] Admission: 04/26/18 Attend Phys: Radha Nazario Discharge: Date of : 47 Report #: [id number] history of tongue cancer. LUNGS: Clear. CARDIOVASCULAR: Regular rate. ABDOMEN: Soft. LOWER EXTREMITIES: Trace edema. LABORATORY REPORT: As mentioned earlier his creatinine is 1.4, BUN is 43, his hemoglobin is 15.3, white count 23.4 thousand. Urinalysis showed presence of trace protein, otherwise unremarkable. His renal ultrasound was done and it was unremarkable. ASSESSMENT: 1. Acute kidney injury, likely due to mild volume depletion. 2. Brain tumor. 3. History of diabetes. PLAN: 1. Continue with gentle hydration. 2. We will keep lisinopril for now and recheck if creatinine is getting worse, then we will stop that. 3. Hydrochlorothiazide. I would like to stop for now. Monitor blood pressure. Thank you very much for asking my opinion on acute kidney injury of this patient. By: 1136 1350Alehayley Tirado MD /MARKIE
[2018-04-26 11:42] VITALS: BP 164/98
[2018-04-26] MEDS ORDERED: MELATIN3 MG PO (11:45)
[2018-04-26 12:25] LABS: HEMATOCRIT 45.2 % (42.0-52.0); HEMOGLOBIN 15.3 gm/dL (14.0-18.0); MCHC 33.8 g/dL (28.0-37.0); MCV 97.4 fL (80.0-100.0); NUCLEATED RBCS 0 /100WBC; PLATELET COUNT* 220 thou/uL (150-400); RBC 4.64 mil/uL (4.50-6.00); RDW-CV 13.2 % (10.5-14.5); WBC 23.4 thou/uL (4.0-11.0)
[2018-04-26 12:35] LABS: ANION GAP 7 mmol/L (7-16); BUN 43 mg/dL (7-18); CHLORIDE 94 mmol/L (98-107); CO2 31 mmol/L (21-32); CREATININE 1.4 mg/dL (0.6-1.3); GLUCOSE 251 mg/dL (70-99); POTASSIUM 4.7 mmol/L (3.5-5.1); SODIUM 132 mmol/L (136-145)
--- NOTE | 2018-04-26 12:36 | NUR ---
SATYA NOTIFIED UPON PT RETURN FROM CT.PT CONNECTED TO PULSE OX AND BP HE WAS PRIOR TO GOING TO CT
[2018-04-26 12:41] LABS: APTT 20.1 Seconds (25.0-31.3); PROTIME 10.7 Seconds (9.20-11.50)
[2018-04-26 12:42] LABS: ABSOLUTE LYMPHOCYTES 1.4 thou/uL (0.8-5.3); ABSOLUTE MONOCYTES 0.2 thou/uL (0.0-1.2); ABSOLUTE NEUTROPHILS 21.8 thou/uL (1.6-8.1); PLATELET ESTIMATE ADEQUATE
[2018-04-26 12:46] LABS: ALBUMIN 2.8 g/dL (3.4-5.0); ALKALINE PHOSPHATASE 64 U/L (46-116); NT-PRO BRAIN NAT PEPTIDE 385 pg/mL (<300); SGOT 22 U/L (15-37); SGPT 46 U/L (30-65); TOTAL BILIRUBIN 0.6 mg/dL (<0.1-1.0); TOTAL PROTEIN 5.9 g/dL (6.4-8.2); TROPONIN-I LEVEL <0.06 ng/mL (<0.06)
[2018-04-26 13:17] LABS: URINE BILIRUBIN NEGATIVE (Negative); URINE BLOOD NEGATIVE (Negative); URINE CLARITY CLEAR; URINE COLOR YELLOW; URINE GLUCOSE-RANDOM 2+ (Negative); URINE KETONES NEGATIVE (Negative); URINE LEUKOCYTES-REFLEX NEGATIVE (Negative); URINE NITRITE-REFLEX NEGATIVE (Negative); URINE PROTEIN TRACE (Negative); URINE SPECIFIC GRAVITY >= 1.030 (1.005-1.030); URINE UROBILINOGEN 0.2 E.U./dl (0.2-1.0)
--- NOTE | 2018-04-26 14:15 | EKG ---
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: FREDA : 1945 Requested By: Kosta Patel Order Number: [id number] MD: Tobi Arnold Measurements Intervals [place] Rate: 69 P: 55 VA: 142 QRS: 4 QRSD: 85 T: 54 QT: 413 QTc: 443 Interpretive Statements Sinus rhythm Probable left atrial enlargement Abnormal R-wave progression, early transition Baseline wander in lead(s) V4 Electronically Signed On 04-26-2018 14:15:01 MEMS ENGINEER by Tobi Arnold [email or web address] <ELECTRONICALLY SIGNED> By: Tobi Arnold MD, [facility] 04/26/18 1415 1210 1210 Tobi Arnold MD, [facility] /EPI
[2018-04-26 15:50] VITALS: BP 165/103
[2018-04-26 16:04] VITALS: BP 164/98
[2018-04-26] MEDS ORDERED: HYDROCHLOROTH12.5 M1 PO (16:40)
[2018-04-26] MEDS ORDERED: KEFLEX500 M1 PO (16:40)
--- NOTE | 2018-04-26 17:34 | NUR ---
PT ADMITTED TO ROOM 311 AROUND 1550 FOR WEAKNESS AND DEHYDRATION. PT REPORTS ON ADMISSION, HE FEELS BETTER AFTER RECEIVING IVF IN ED. PT NOTED TO BE CLINICAL TRIAL FOR BRAIN CANCER. PT NOTED TO HAVE SLURRED SPEECH D/T HISTORY MULTIPLE RADIATION TREATMENTS TO HEAD AND NECK AREA. PT HAS CHRONIC LEFT SIDED WEAKNESS D/T BRAIN TUMOR. AT BEDSIDE. FALL PRECAUTIONS IN PLACE. NO OTHER CONCERNS AT THIS TIME. CLWR. WCTM.
[2018-04-26 19:40] VITALS: BP 158/86
--- NOTE | 2018-04-27 05:48 | NUR ---
PATIENT HAS BEEN ALERT AND ORIENTED, NOT SLEPT WELL TONIGHT. VITAL SIGNS STABLE ON ROOM AIR. IV WORKS WELL IN RIGHT AC. USING URINAL IN BED TONIGHT. NO COMPLAINTS OF PAIN TONIGHT. BED ALARM ON, USES CALL LIGHT. WILL CONTINUE TO MONITOR.
[2018-04-27 08:45] VITALS: BP 168/94
[2018-04-27 15:30] VITALS: BP 166/99
--- NOTE | 2018-04-27 18:53 | NUR ---
ASSUMED CARE OF PT AT 0700, PT UP TO BEDSIDE COMMODE WITH ASSIST X2, PT IS EXTREMELY WEAK. APPETITE GOOD THIS SHIFT, ATE MOST OF ALL THREE MEALS. PT URINATING WELL THIS AFTERNOON WITH COMBINED OUTPUT OF APPX 700CC. PT HAS NO C/O PAIN AT THIS TIME. HOURLY ROUNDING MAINTAINED, WILL CONT TO MONITOR.
[2018-04-27 23:06] VITALS: BP 160/83
--- NOTE | 2018-04-28 04:23 | NUR ---
RESTED WELL AFTER EXTERNAL MALE CATHETER PLACED, UP TO THEN PT VOIDING EVERY 30 MINUTES. DENIES , TURNED EVERY 2 HOURS, DISCUSSED CURRENT PLAN OF CARE AND VVERBALIZED UNDERSTANDING,MARY ALARM ON FOR SAFETY.
[2018-04-28 05:03] LABS: ALBUMIN 2.2 g/dL (3.4-5.0); CREATININE 1.1 mg/dL (0.6-1.3); POTASSIUM 4.2 mmol/L (3.5-5.1); TOTAL BILIRUBIN 0.5 mg/dL (<0.1-1.0); TOTAL PROTEIN 4.6 g/dL (6.4-8.2)
[2018-04-28 09:30] VITALS: BP 145/91
--- NOTE | 2018-04-28 12:46 | NUR ---
SW met with pt while pt was sleeping (pt said he finally was able to fall asleep) to complete initial assessment, introduce self, and SW role. Pt, pt and SW familiar with each other due to pt hx of inpt rehab at [facility]. Pt lives at home with his . Pt has all needed DME and has hx of HH through [facility]. SW to continue to follow to assist with safe dc planning.
[2018-04-28] MEDS ORDERED: DEXAMETHASONE 44 M1 PO (13:02)
[2018-04-28 16:00] VITALS: BP 158/97
--- NOTE | 2018-04-28 17:37 | NUR ---
PATIENT IS ALERT AND ORIENTED TODAY VERY PLEASANT. UP TO THE BEDSIDE COMMODE TODAY. NO COMPLAINTS OF PAIN TODAY. PATIENT IS READY TO GO HOME, HOSPICE AND PALLAATIVE CARE IS SET UP FOR PATIENT TO GO TOMORROW. HAS BEEN AT THE BEDSIDE MOST OF THE DAY. VITAL SIGNS STABLE ON ROOM AIR. CALL LIGHT IS IN REACH, WILL CONTINUE TO MONITOR.
[2018-04-29] VITALS: BP 168/99
--- NOTE | 2018-04-29 04:46 | NUR ---
PATIENT SLEPT PART OF THE NIGHT. IV REMAINS SALINE LOCKED. PATIENT HAD NO COMPLAINTS OF PAIN. PATIENT IS POSSIBLY BEING DISCHARGED TODAY. WILL CONTINUE TO MONITOR.
--- NOTE | 2018-04-29 09:24 | NUR ---
ORDER RECEIVED FOR "OT EVALUATION AND TREATMENT". ENTERED PATIENT'S ROOM, AND SPOUSE/OTHER VISITORS IN ROOM. PT AWARE OF ROLE OF OT. PT STATING THAT HE WILL GOING HOME WITH HOSPICE TODAY. DENIES NEED FOR OCCUPATIONAL THERAPY. SPOUSE NODDING HEAD IN AGREEMENT WITH PATIENT'S DECISION.
[2018-04-29 09:51] VITALS: BP 168/99
--- NOTE | 2018-04-29 09:53 | NUR ---
Pt to dc home today with and hospice services to follow. [employer] faxed orders to pt/family preference of [facility]. Pt family agreeable to need for ambulance transport; dc logistics planner arranging for 12:00 pm. Pt nurse aware.
[2018-04-29 10:50] VITALS: BP 155/90
--- NOTE | 2018-04-29 11:32 | NUR ---
MANAGER ICU INFORMED OF THE NEED TO ARRANGE [facility] TRANSPORT FOR THE PATIENT. D/C AUTOMATION CONTROLS ENGINEER CONTACTED [facility] AND FAXED THE PATIENT FACESHEET AND PATIENT TRANSFER FORM. [facility] TO PROVIDE TRANSPORT FOR THE PATIENT AT 1200. RN INFORMED OF THE PATIENT'S TIME OF TRANSPORT AND SHE IS IN AGREEMENT. CM WILL REMAIN AVAILABLE TO ASSIST AND FOLLOW NEEDED.
--- NOTE | 2018-04-29 12:22 | NUR ---
PATIENT HAS BEEN ALERT AND ORIENTED TODAY, VERY PLEASANT. VITAL SIGNS STABLE ON ROOM AIR. NO COMPLAINTS OF PAIN OF ANY KIND TODAY. PATIENT IS BEING DISCHARGED TO HOME WITH HOSPICE CARE. DISCHARGE INSTRUCTIONS WENT OVER WITH PATIENT AND FAMILY. PRESCRIPTION GIVEN TO SON. LEFT VIA CART WITH EMS TO HOME.
[2018-04-29 12:25] VITALS: BP 168/99
== END 2018-04-29 12:26 | disposition hospice, home (50) | DRG 682 ==
LOC: M.ERS 11:41 → M.TBA-ER 13:56 → M.3W 13:56
PROVIDERS: Emergency Medicine Emergency Medical Services; Internal Medicine Nephrology; ADMIT Internal Medicine
DX: N17.9 Acute kidney failure, unspecified (principal); E43 Unspecified severe protein-calorie malnutrition; R65.11 Systemic inflammatory response syndrome (SIRS) of non-infectious origin with acute organ dysfunction; C71.9 Malignant neoplasm of brain, unspecified; E86.0 Dehydration; I10 Essential (primary) hypertension; E11.9 Type 2 diabetes mellitus without complications; G89.29 Other chronic pain; M54.9 Dorsalgia, unspecified; D49.6 Neoplasm of unspecified behavior of brain; E03.9 Hypothyroidism, unspecified; Z85.07 Personal history of malignant neoplasm of pancreas; Z87.891 Personal history of nicotine dependence; Z86.718 Personal history of other venous thrombosis and embolism; Z92.21 Personal history of antineoplastic chemotherapy; Z92.3 Personal history of irradiation; Z86.73 Personal history of transient ischemic attack (TIA), and cerebral infarction without residual deficits; Z68.27 Body mass index [BMI] 27.0-27.9, adult